=== PATIENT | female | born 1955 | race Hispanic/Latino ===

== ENCOUNTER 2019-12-18 12:04 | Outpatient (CLI) | payer OTHER ==
--- NOTE | 2019-12-18 12:25 | RAD ---
XR Knee Rt 4 View STANDARD HISTORY: Fall, right acute knee pain FINDINGS: No fracture or dislocation is identified.
== END 2019-12-18 12:05 | disposition home or self-care (01) ==
LOC: NAV RAD 12:04
PROVIDERS: ATTEND Nurse Practitioner Adult Health
DX: M25.561 Pain in right knee (principal)